=== PATIENT | male | born 1970 ===

== ENCOUNTER 2017-11-13 14:51 | Emergency (ER) | payer OTHER ==
[2017-11-13 14:58] VITALS: RESP 16
[2017-11-13 15:00] VITALS: BMI 24.4
--- NOTE | 2017-11-13 15:33 | ED PDOC ---
Lower Extremity Pain/Injury Time Seen by Provider: 11/13/17 15:14 Chief Complaint (Nursing): Lower Extremity Problem/Injury Chief Complaint (Provider): Ankle Injury History Per: Patient History/Exam Limitations: no limitations Onset/Duration Of Symptoms: Days Current Symptoms Are (Timing): Still Present Additional Complaint(s): 47 year old male presents to the emergency department with an ankle injury. Patient states that he fell causing injury to his left ankle. He reports that he was evaluated at [facility] ED but while there declined to have an Xray performed. Patient states he is able to ambulate but not without pain. Past Medical History Reviewed: Historical Data, Nursing Documentation Vital Signs: Last Vital Signs Temp 98.3 F 11/13/17 14:57 Pulse 108 H 11/13/17 14:57 Resp 16 11/13/17 14:57 BP 151/75 H 11/13/17 14:57 Pulse Ox 97 11/13/17 14:57 - Medical History PMH: No Chronic Diseases - Surgical History Surgical History: No Surg Hx - Family History Family History: States: Unknown Family Hx - Home Medications Home Medications: Ambulatory Orders Medication Instructions Recorded Ibuprofen [Motrin] 600 mg PO Q6 PRN #20 tab 11/11/17 Naproxen 375 mg PO Q8 PRN #21 tablet 11/13/17 - Allergies Allergies/Adverse Reactions: Allergies Allergy/AdvReac Type Severity Reaction Status Date / Time No Known Allergies Allergy Verified 11/11/17 14:33 Review of Systems ROS Statement: Except As Marked, All Systems Reviewed And Found Negative Musculoskeletal: Positive for: Other (left ankle pain) Physical Exam - Reviewed Nursing Documentation Reviewed: Yes Vital Signs Reviewed: Yes - Physical Exam Appears: Positive for: Non-toxic, No Acute Distress Skin: Positive for: Normal Color, Warm, Dry. Negative for: Rash Eye Exam: Positive for: Normal appearance, EOMI, PERRL Extremity: Positive for: Normal ROM, Other (Ecchymosis b/l aspect of left ankle and dorsum of foot ). Negative for: Tenderness, Deformity, Swelling Neurologic/Psych: Positive for: Alert, Oriented, Gait - ECG O2 Sat by Pulse Oximetry: 97 (RA) Pulse Ox Interpretation: Normal - Progress ED Course And Treament: ct of lower extremity: reviewed by podiatry resident. seen by podiatry resident placed in cabrera compression dressing and posterior splint. Given crutch instructions. Medical Decision Making Medical Decision Makin Initial impression 47 year old male presenting with injury to left ankle Initial Plan: * Ibuprofen 600 mg * RAD left Ankle * RAD left foot * Reevaluation 1540 Ankle X-Ray FINDINGS: BONES: No acute fracture. JOINTS: Ankle mortise maintained. Talar dome intact SOFT TISSUES: Lateral malleolar soft tissue swelling. Small ankle joint effusion. OTHER FINDINGS: Achilles enthesophyte. IMPRESSION: Lateral malleolar soft tissue swelling and small ankle joint effusion without demonstrated fracture or dislocation. 1541 Foot X-Ray FINDINGS: BONES: Minimally displaced fracture of the mid/distal 5th metatarsal. JOINTS: Normal. SOFT TISSUES: Lateral mid/forefoot soft tissue swelling. OTHER FINDINGS: Achilles enthesophyte. IMPRESSION: Minimally displaced fracture of the mid/distal 5th metatarsal. 1602 Case discussed with podiatry who will come to see patient in ED. 1720 Tibia/Fibula X-Ray FINDINGS: BONES: No fracture or destructive lesion. JOINT SPACES: Unremarkable. OTHER FINDINGS: None. IMPRESSION: Unremarkable radiographs of the left tibia and fibula. 1857 CT Left Lower Extremity FINDINGS: Bones/joints: Again noted is an oblique fracture through the neck of the fifth metatarsal. The remaining bones are intact. No other fractures. No dislocations. Soft tissues: There is swelling and stranding of the subcutaneous tissues laterally. IMPRESSION: Fracture of the fifth metatarsal Dictated and Authenticated by: Wyatt Montenegro MD 11/13/2017 6:57 PM Eastern Time ([place] & [place]) Documented by Elisa Shea acting as a scribe for Ilda South PA-C. All medical record entries made by the Scribe were at my direction and personally dictated by me. I have reviewed the chart and agree that the record accurately reflects my personal performance of the history, physical exam, medical decision making, and the department course for this patient. I have also personally directed, reviewed, and agree with the discharge instructions and disposition. Disposition - Clinical Impression Clinical Impression: Fracture of metatarsal bone of left foot - Patient ED Disposition Is Patient to be Admitted: No - Disposition Referrals: Giancarlo Pathak DPM [Staff Provider] - Podiatry Clinic [Outside] Disposition: Routine/Home Disposition Time: 17:39 Condition: FAIR Prescriptions: Naproxen 375 mg PO Q8 PRN #21 tablet PRN Reason: Pain, Moderate (4-7) Instructions: Foot Fracture (DC) Print Language: SINHALA
--- NOTE | 2017-11-13 15:42 | RAD ---
Date of service: 11/13/2017 PROCEDURE: Left Ankle Radiographs. HISTORY: ANKLE INJURY COMPARISON: None FINDINGS: BONES: No acute fracture. JOINTS: Ankle mortise maintained. Talar dome intact SOFT TISSUES: Lateral malleolar soft tissue swelling. Small ankle joint effusion. OTHER FINDINGS: Achilles enthesophyte. IMPRESSION: Lateral malleolar soft tissue swelling and small ankle joint effusion without demonstrated fracture or dislocation.
--- NOTE | 2017-11-13 15:43 | RAD ---
Date of service: 11/13/2017 PROCEDURE: Left Foot Radiographs. HISTORY: injury COMPARISON: None. FINDINGS: BONES: Minimally displaced fracture of the mid/distal 5th metatarsal. JOINTS: Normal. SOFT TISSUES: Lateral mid/forefoot soft tissue swelling. OTHER FINDINGS: Achilles enthesophyte. IMPRESSION: Minimally displaced fracture of the mid/distal 5th metatarsal.
--- NOTE | 2017-11-13 16:34 | CP.PCM.CON ---
History of Present Illness - History of Present Illness History of Present Illness: Podiatry consult note for attending Dr. Mckinley 47 y/o male seen and evaluated in the ED for pain and swelling to the left foot. Patient states he fell down the stairs on 11/10/17. Patient states he went to [facility] ED, was given pain medication, however, patient denied x-rays at that time. Patient ambulated into the ED today as the pain has worsened. Patient denies numbness or tingling. Patient denies F/N/V/SOB/chills/posterior calf pain. Unable to obtain proper history from patient, patient poor historian PMHx: Bipolar disorder Medication: patient states he takes "sleeping pills" Allergies: NKDA Social Hx: smokes 1 pack of cigarettes per day, denies ETOH use Review of Systems - Review of Systems All systems: reviewed and no additional remarkable complaints except Review of Systems: As per HPI Past Patient History - Past Social History Smoking Status: Never Smoked - PSYCHIATRIC Hx Substance Use: No Meds Home Medications: Home Medication List Medication Instructions Recorded Confirmed Type Naproxen 375 mg PO Q8 PRN #21 tablet 11/13/17 Rx Allergies/Adverse Reactions: Allergies Allergy/AdvReac Type Severity Reaction Status Date / Time No Known Allergies Allergy Verified 11/11/17 14:33 Physical Exam - Constitutional Appears: Well, Non-toxic, No Acute Distress - Head Exam Head Exam: ATRAUMATIC, NORMOCEPHALIC - Extremities Exam Additional comments: Bilateral Lower Extremity Exam VASC: DP and PT 2/4 bilaterally, CFT less than 3 seconds X 10; TG within normal limits, moderate non-pitting edema present to the left lateral ankle and dorso- lateral aspect of the left foot NEURO: protective sensation intact DERM: ecchymosis present to the lateral aspect of the left ankle at the level of the lateral malleolus, to the lateral aspect of the calcaneus, at the 2nd and 3rd MTPJ, and plantar midfoot, non-pitting edema present to the left lateral ankle and dorso-lateral aspect of the left foot MSK: pain on palpation to the lateral aspect of the foot at the 5th metatarsal, minimal pain with eversion of the foot, no pain with plantarflexion or dorsiflexion, no pain on palpation to the lateral ankle or to the medial ankle, no pain on range of motion of the ankle, or the 2nd and 3rd MTPJ, range of motion of the ankle joint and subtalar joint is limited, patient able to wiggle digits - Neurological Exam Neurological exam: Alert, Oriented x3 - Psychiatric Exam Psychiatric exam: Normal Affect, Normal Mood Results - Vital Signs Recent Vital Signs: Last Vital Signs Temp 98.3 F 11/13/17 14:57 Pulse 108 H 11/13/17 14:57 Resp 16 11/13/17 14:57 BP 151/75 H 11/13/17 14:57 Pulse Ox 97 11/13/17 16:04 Assessment & Plan - Assessment and Plan (Free Text) Assessment: 47 y/o male seen and evaluated in the ED for complaints of pain and swelling to left foot Plan: Patient seen and evaluated at bedside for attending Dr. Mckinley Plan discussed with attending Chart, labs and vitals reviewed Ordered Foot and Ankle Radiographs- spiral fracture noted of the Left 5th metatarsal shaft, questionable fractures of the base of left 3rd and 4th metatarsals, questionable Lisfranc's injury Tibia-Fibula X-rays: unremarkable Lower Extremity CT- confirmed 5th metatarsal fracture of the left foot- Pending final read Radiographic images reviewed with patient, and etiology of fracture explained Patient explained to quit smoking for proper bone healing to occur Patient placed in a Byers compression with posterior splint Patient provided with crutches for ambulation, and patient taught how to use crutches Patient strongly advised not to bear weight to the left foot Patient to keep splint clean, dry and intact Patient explained to return to ED if posterior splint is not tolerable or if pain worsens Patient provided with medication for pain Patient to follow up in Dr. Mckinley's office this week, patient advised to call to make appointment Patient questions answered to satisfaction and instructions repeated to patient several times Patient demonstrated verbal understanding Thank you for the Podiatry consult - Date & Time Date: 11/13/17 Time: 18:20
--- NOTE | 2017-11-13 17:22 | RAD ---
Date of service: 11/13/2017 PROCEDURE: Radiographs of the left tibia and fibula. HISTORY: possible proximal tib-fib fracture COMPARISON: None available. TECHNIQUE: Frontal and lateral views obtained. FINDINGS: BONES: No fracture or destructive lesion. JOINT SPACES: Unremarkable. OTHER FINDINGS: None. IMPRESSION: Unremarkable radiographs of the left tibia and fibula.
[2017-11-13 17:40] VITALS: BP 138/67; PULSE 92; TEMP 98; O2SAT 97
--- NOTE | 2017-11-14 09:39 | CT ---
Date of service: 11/13/2017 PROCEDURE: CT LEFT LOWER EXTREMITY WITHOUT CONTRAST HISTORY: foot/ankle left leg COMPARISON: Left foot ankle radiographs 11/13/2017. TECHNIQUE: A volumetric CT acquisition was performed through the left ankle and Foot without intravenous contrast as requested. Reformatted datasets provided in sagittal axial coronal planes including surface rendering techniques. Contrast Dose: None Radiation dose:Total exam DLP = 292.69 mGy-cm. This CT exam was performed using one or more of the following dose reduction techniques: Automated exposure control, adjustment of the mA and/or kV according to patient size, and/or use of iterative reconstruction technique. FINDINGS: An oblique fracture of the distal left 5th metatarsal diametaphysis is a reiterated with the major fracture fragment minimally displaced distally. No additional fractures identified throughout the remainder of the examination including left ankle and foot. Local soft tissue edema is seen relative to the fracture as well as overlying the lateral malleolus moderately. No subluxation or dislocation is appreciated throughout the examination. No destructive bony lesion is identified. Further characterization of soft tissues and bone elements can be provided by MRI if clinically warranted. IMPRESSION: Stable oblique fracture distal left 5th metatarsal diametaphysis as discussed above. No dislocation or additional fracture. Limited soft tissue edema changes as discussed. Concordant preliminary report from [facility], 11/13/2017.
== END 2017-11-13 18:01 | disposition home or self-care (01) ==
LOC: H.ER 14:51
DX: S92.352A Displaced fracture of fifth metatarsal bone, left foot, initial encounter for closed fracture (principal); W10.9XXA Fall (on) (from) unspecified stairs and steps, initial encounter; Y92.89 Other specified places as the place of occurrence of the external cause; F31.9 Bipolar disorder, unspecified; F17.210 Nicotine dependence, cigarettes, uncomplicated

== ENCOUNTER 2018-03-18 13:44 | Emergency (ER) | payer OTHER ==
[2018-03-18 13:45] VITALS: BMI 24.4
[2018-03-18 13:51] VITALS: TEMP 98; O2SAT 98
--- NOTE | 2018-03-18 16:02 | ED PDOC ---
HPI: Psych/Substance Abuse Time Seen by Provider: 03/18/18 15:47 Chief Complaint (Nursing): Psychiatric Evaluation Chief Complaint (Provider): Psychiatric Evaluation Additional Complaint(s): 47 y/o Male with hx of mental delay, schizophrenia, HL, and asthma who was BIBA to ED for psych evaluation. Has not been sleeping, possibly 2 hrs a night. He has not been eating much, has been closing curtains and windows and does not want anyone to stand next to him, only in front of him. Per his mother, he has not been violent but has been blocking his family members from leaving the room. Denies suicidal/homicidal ideations, visual or auditory hallucinations. Denies any physical complaints. Past Medical History Vital Signs: Last Vital Signs Temp 98 F 03/18/18 13:49 Pulse 121 H 03/18/18 13:49 Resp 16 03/18/18 13:49 BP 166/90 H 03/18/18 13:49 Pulse Ox 98 03/18/18 13:49 - Medical History PMH: Bipolar Disorder, Schizophrenia Denies: Chronic Kidney Disease - Family History Family History: States: Unknown Family Hx - Immunization History Hx Tetanus Toxoid Vaccination: No Hx Influenza Vaccination: No Hx Pneumococcal Vaccination: No - Home Medications Home Medications: Ambulatory Orders Medication Instructions Recorded Ibuprofen [Motrin] 600 mg PO Q8 #30 tab 11/28/17 - Allergies Allergies/Adverse Reactions: Allergies Allergy/AdvReac Type Severity Reaction Status Date / Time No Known Allergies Allergy Verified 03/18/18 13:49 Physical Exam - Reviewed Nursing Documentation Reviewed: Yes Vital Signs Reviewed: Yes - Physical Exam Appears: Positive for: Well Head Exam: Positive for: ATRAUMATIC Skin: Positive for: Normal Color Eye Exam: Positive for: Normal appearance Neck: Positive for: Supple Cardiovascular/Chest: Positive for: Regular Rate, Rhythm Respiratory: Positive for: Normal Breath Sounds Neurologic/Psych: Positive for: Alert, Oriented, Mood/Affect (flat). Negative for: Motor/Sensory Deficits, Facial Droop - Laboratory Results Result Diagrams: 03/18/18 16:03 03/18/18 16:03 - ECG O2 Sat by Pulse Oximetry: 98 Medical Decision Making Medical Decision Making: CBC,CMP Portable chest x-ray U/A Urine drug screen EKG Serum alcohol level Crisis evaluation. Valproic acid patient seen by crisis and cleared for discharge by Dr. Hurt. Valproic acid is low given additional 500 mg PO Depakote (patient's home dose) Patient is to follow up with psychiatrist over the next x2 days to evaluate if there is a need for medication changes. Disposition - Clinical Impression Clinical Impression: Bipolar 1 disorder - Patient ED Disposition Is Patient to be Admitted: No Discussed With DrRosalino: Dmitry Tijerina Doctor Will See Patient In The: ED Counseled Patient/Family Regarding: Diagnosis, Need For Followup - Disposition Disposition: Routine/Home Disposition Time: 18:58 Condition: STABLE Additional Instructions: PLEASE CONTACT DR. RODRIGO CHILDERS TUESDAY MORNING TO OBTAIN AN APPOINTMENT SOON POSSIBLE AND DISCUSS WITH THE PSYCHIATRIST THE POSSIBILITY OF MEDICATION RE- EVALUATION. Instructions: Bipolar Disorder (DC) Forms: [facility] (Greek) Print Language: TAJIK
[2018-03-18 16:09] LABS: BASO % 0.6 % (0.0-2.0); EOS % 0.6 % (0.0-4.0); HEMOGLOBIN 12.7 g/dL (12.0-18.0); LYMPH # 1.7 K/uL (1.0-4.3); LYMPH % 23.1 % (20.0-40.0); MEAN CELL VOLUME 86.1 fl (80.0-94.0); MEAN CORPUSCULAR HEMOGLOBIN 28.2 pg (27.0-31.0); MEAN CORPUSCULAR HGB CONC 32.7 g/dL (33.0-37.0); MEAN PLATELET VOLUME 8.7 fl (7.2-11.7); MONO # 0.4 K/uL (0.0-0.8); NEUT # 5.1 K/uL (1.8-7.0); NEUT % 70.7 % (50.0-75.0); RBC 4.52 Mil/uL (4.40-5.90); RED CELL DISTRIBUTION WIDTH 14.4 % (11.5-14.5); WHITE BLOOD COUNT 7.3 K/uL (4.8-10.8)
[2018-03-18 16:20] LABS: ALB/GLOB RATIO 1.3 (1.0-2.1); ALBUMIN 4.6 g/dL (3.5-5.0); ALT/SGPT 43 U/L (21-72); AST/SGOT 38 U/L (17-59); BLOOD UREA NITROGEN 19 mg/dl (9-20); CALCIUM 10.2 mg/dL (8.4-10.2); GFR NON-AFRICAN AMERICAN > 60
[2018-03-18 16:22] LABS: SQUAMOUS EPITHIAL < 1 /hpf (0-5); URINE BACTERIA RARE (<OCC); URINE BILIRUBIN NEGATIVE (NEGATIVE); URINE BLOOD NEGATIVE (NEGATIVE); URINE CLARITY SLIGHTY-CLOUDY (Clear); URINE COLOR AMBER (YELLOW); URINE GLUCOSE (UA) NEG (Normal); URINE LEUKOCYTE ESTERASE NEG Leu/uL (Negative); URINE PROTEIN 100 mg/dL (NEGATIVE)
[2018-03-18 16:50] LABS: BARBITURATES, UR NEGATIVE (NEGATIVE); BENZODIAZEPINES, UR NEGATIVE (NEGATIVE); OPIATES, UR NEGATIVE (NEGATIVE); PHENCYCLIDINE, UR NEGATIVE (NEGATIVE)
[2018-03-18 17:51] VITALS: BP 155/96; PULSE 110; RESP 18
[2018-03-18] MEDS ORDERED: Divalproex 500 mg DR(BID formulation) PO STA (18:34)
--- NOTE | 2018-03-19 10:53 | RAD ---
Date of service: 03/18/2018 PROCEDURE: CHEST RADIOGRAPH, 1 VIEW HISTORY: baseline COMPARISON: None available. FINDINGS: LUNGS: Clear. PLEURA: No pneumothorax or pleural fluid seen. CARDIOVASCULAR: No aortic atherosclerotic calcification present. Normal. OSSEOUS STRUCTURES: No significant abnormalities. VISUALIZED UPPER ABDOMEN: Normal. OTHER FINDINGS: None. IMPRESSION: No active disease.
--- NOTE | 2018-03-19 21:46 | CARD ---
APPROVED REPORT Date of service: 03/18/2018 EKG Measurement Heart [id number] <Conclusion> Normal sinus rhythm Normal ECG
== END 2018-03-18 19:10 | disposition home or self-care (01) ==
LOC: H.ER 13:44
DX: F31.9 Bipolar disorder, unspecified (principal); Z86.59 Personal history of other mental and behavioral disorders; J45.909 Unspecified asthma, uncomplicated
CPT/HCPCS: 71045; 80053; 80164; 81003; 85025; 93005; 99283; G0480